=== PATIENT | male | born 1980 | race Caucasian/White ===

== ENCOUNTER 2017-01-04 00:55 | Emergency (ER) | payer MEDICARE, OTHER ==
[2017-01-04 01:17] LABS: BASO % 0.3 % (0.2-1.2); EOS # 0.3 10_X3_uL (0.0-0.5); GRAN # 3.9 10_X3_uL (1.8-5.4); GRAN % 56.2 % (34.0-67.9); HEMATOCRIT 43.5 % (40-51); HEMOGLOBIN 14.6 g/dL (13.7-17.5); LYMPH # 2.2 10_X3_uL (1.3-3.6); MEAN CORPUSCULAR HEMOGLOBIN 32.2 pg (27.0-33.0); MEAN CORPUSCULAR HGB CONC 33.6 g/dL (32.0-36.0); MEAN PLATELET VOLUME 9.5 fl (7.5-11.5); MONO # 0.6 10_X3_uL (0.3-0.8); MONO % 8.5 % (5.3-12.2); PLATELET COUNT 288 x10_3/uL (163-337); RED BLOOD COUNT 4.53 x10_6/uL (4.6-6.1); RED CELL DISTRIBUTION WIDTH 12.9 % (11.6-14.4)
[2017-01-04 01:28] LABS: ALBUMIN 4.4 gm/dL (3.4-5.0); ALKALINE PHOSPHATASE 78 U/L (50-136); ALT/SGPT 22 U/L (7.53-40.17); AST/SGOT 25 U/L (6.66-35.34); BILIRUBIN,TOTAL 0.34 mg/dL (0.0-1.0); BLOOD UREA NITROGEN 11 mg/dL (7-18); CARBON DIOXIDE 28 mmol/L (21-32); CREATININE 0.8 mg/dL (0.6-1.3); GLUCOSE,RANDOM 78 mg/dL (70-99); POTASSIUM 4.6 mmol/L (3.5-5.1); SODIUM 143 mmol/L (136-145); TOTAL PROTEIN 6.6 gm/dL (6.4-8.2)
== END 2017-01-04 03:17 | disposition home or self-care (01) ==
LOC: ER 00:55
PROVIDERS: Emergency Medicine
DX: E10.649 Type 1 diabetes mellitus with hypoglycemia without coma (principal); T38.3X5A Adverse effect of insulin and oral hypoglycemic [antidiabetic] drugs, initial encounter; Z96.41 Presence of insulin pump (external) (internal); I10 Essential (primary) hypertension; Z88.7 Allergy status to serum and vaccine; F17.220 Nicotine dependence, chewing tobacco, uncomplicated; Z98.49 Cataract extraction status, unspecified eye; H54.42 Blindness, left eye, normal vision right eye; Z79.899 Other long term (current) drug therapy; Z79.84 Long term (current) use of oral hypoglycemic drugs
CPT/HCPCS: 36415; 80053; 82962; 85025; 99070; 99283; 99284

== ENCOUNTER 2017-01-16 07:32 | Emergency (ER) | payer MEDICARE, OTHER ==
[2017-01-16 08:00] LABS: BASO % 0.2 % (0.2-1.2); EOS # 0.4 10_X3_uL (0.0-0.5); EOS % 4.7 % (0.8-7.0); GRAN # 4.6 10_X3_uL (1.8-5.4); GRAN % 48.4 % (34.0-67.9); HEMATOCRIT 46.3 % (40-51); HEMOGLOBIN 15.7 g/dL (13.7-17.5); LYMPH # 3.5 10_X3_uL (1.3-3.6); LYMPH % 37.4 % (21.8-53.1); MEAN CORPUSCULAR HEMOGLOBIN 32.2 pg (27.0-33.0); MEAN CORPUSCULAR HGB CONC 33.9 g/dL (32.0-36.0); MEAN CORPUSCULAR VOLUME 94.9 fL (79-92); MONO # 0.9 10_X3_uL (0.3-0.8); MONO % 9.3 % (5.3-12.2); PLATELET COUNT 411 x10_3/uL (163-337); RED BLOOD COUNT 4.88 x10_6/uL (4.6-6.1); RED CELL DISTRIBUTION WIDTH 12.7 % (11.6-14.4); WHITE BLOOD COUNT 9.4 x10_3/uL (4.2-9.1)
[2017-01-16 08:19] LABS: ALBUMIN 4.7 gm/dL (3.4-5.0); ALKALINE PHOSPHATASE 85 U/L (50-136); ALT/SGPT 14 U/L (7.53-40.17); AST/SGOT 18 U/L (6.66-35.34); BILIRUBIN,TOTAL 0.52 mg/dL (0.0-1.0); CALCIUM 9.7 mg/dL (8.7-10.7); CARBON DIOXIDE 24 mmol/L (21-32); CREATININE 0.8 mg/dL (0.6-1.3); SODIUM 146 mmol/L (136-145); TOTAL PROTEIN 7.2 gm/dL (6.4-8.2)
[2017-01-16 08:21] LABS: BLOOD UREA NITROGEN 4 mg/dL (7-18); GLUCOSE,RANDOM 24 mg/dL (70-99)
[2017-01-16 08:54] LABS: BLOOD UREA NITROGEN 4 mg/dL (7-18); CALCIUM 8.5 mg/dL (8.7-10.7); CARBON DIOXIDE 25 mmol/L (21-32); CREATININE 0.7 mg/dL (0.6-1.3); GLUCOSE,RANDOM 275 mg/dL (70-99); POTASSIUM 3.4 mmol/L (3.5-5.1); SODIUM 140 mmol/L (136-145)
[2017-01-16 10:03] LABS: BLOOD UREA NITROGEN 5 mg/dL (7-18); CALCIUM 9.1 mg/dL (8.7-10.7); CARBON DIOXIDE 25 mmol/L (21-32); CREATININE 0.7 mg/dL (0.6-1.3); GLUCOSE,RANDOM 272 mg/dL (70-99); POTASSIUM 3.9 mmol/L (3.5-5.1); SODIUM 138 mmol/L (136-145)
== END 2017-01-16 11:00 | disposition home or self-care (01) ==
LOC: ER 07:32
PROVIDERS: Emergency Medicine
DX: E11.649 Type 2 diabetes mellitus with hypoglycemia without coma (principal); I10 Essential (primary) hypertension; F17.220 Nicotine dependence, chewing tobacco, uncomplicated; Z96.41 Presence of insulin pump (external) (internal); Z79.899 Other long term (current) drug therapy; Z88.7 Allergy status to serum and vaccine
CPT/HCPCS: 36415; 80048; 80053; 82962; 83605; 85025; 87040; 93005; 96361; 96365; 96375; 99070; 99284; 99284-25